=== PATIENT | male | born 1990 | race Caucasian/White ===

== ENCOUNTER 2020-06-24 15:16 | Emergency (ER) | payer OTHER ==
[~2020-06-24] VITALS: Ht 172.7 cm; Wt 97.5 kg
== END 2020-06-24 16:39 | disposition home or self-care (01) ==
LOC: ER 15:16
DX: I10 Essential (primary) hypertension (principal)

== ENCOUNTER 2021-02-10 08:06 | Emergency (ER) | payer OTHER ==
[~2021-02-10] VITALS: Ht 172.7 cm; Wt 97.5 kg
[2021-02-10] MEDS ORDERED: VASOTEC20 M1 PO (08:17)
== END 2021-02-10 12:29 | disposition home or self-care (01) ==
LOC: ER 08:06
DX: N48.89 Other specified disorders of penis (principal)

== ENCOUNTER 2021-08-04 08:00 | Outpatient (CLI) | payer OTHER ==
[~2021-08-04 08:00] MED LIST: VASOTEC20 M1 PO
== END 2021-08-04 08:30 | disposition home or self-care (01) ==
LOC: PPH VACUNA 08:00
PROVIDERS: ATTEND Emergency Medicine Pediatric Emergency Medicine
DX: Z23 Encounter for immunization (principal)